=== PATIENT | male | born 1990 | race Two or more races ===

== ENCOUNTER 2021-01-28 16:44 | Emergency (ER) | payer OTHER ==
[~2021-01-28] VITALS: Ht 170.2 cm; Wt 61.2 kg
[2021-01-28 16:48] VITALS: BP 135/58
--- NOTE | 2021-01-28 16:55 | NUR ---
PT SENT TO [facility] TO AWAIT AVAILABLE BED.
[2021-01-28] MEDS ORDERED: KETOROLAC 15 MG/ML VIAL IM ONE (18:35)
[2021-01-28] MEDS ORDERED: methocarbamoL 500 MG TAB PO SCH (18:35)
--- NOTE | 2021-01-28 18:51 | NUR ---
30/M WITH C/O LEFT SHOULDER PAIN AND BACK PAIN. PATIENT STATES HE "SLEPT WRONG" AND WOKE UP IN CONSTANT 10/10 THROBBING PAIN. DENIES INJURY OR TRAUMA, ROM OF LEFT ARM AND SHOULDER IS LIMITED DUE TO PAIN. PULSES AND SENSATION EQUAL BILATERALLY, PATIENT ABLE TO MOVE ALL DIGITS APPROPRIATELY. DENIES TAKING ANYTHING FOR PAIN. DENIES FEVER, CHILLS, CP OR SOB.
--- NOTE | 2021-01-28 19:21 | NUR ---
Pt report given to [facility]. Transfer of care at this time.
--- NOTE | 2021-01-28 19:22 | NUR ---
RECEIVED REPORT FROM GERALDO GAR, TRANSFER OF CARE AT THIS TIME. PT A/O X4 GCS 15 WITH EVEN AND UNLABORED RESPIRATIONS. AWAITING DISCHARGE PAPERWORK.
--- NOTE | 2021-01-28 19:46 | NUR ---
Patient discharged with v/s stable. Written and verbal after care instructions ABOUT SHOULDER PAIN given and explained. Patient verbalized understanding. Ambulatory with steady gait. All questions addressed prior to discharge. Advised to follow up with PMD.
== END 2021-01-28 19:46 | disposition home or self-care (01) ==
LOC: MED 16:44
DX: M25.512 Pain in left shoulder (principal); M54.6 Pain in thoracic spine; F90.9 Attention-deficit hyperactivity disorder, unspecified type; F17.200 Nicotine dependence, unspecified, uncomplicated
CPT/HCPCS: 72072; 73030; 96372; 99284; J1885

== ENCOUNTER 2021-05-21 10:07 | Emergency (ER) | payer BC, OTHER ==
[~2021-05-21] VITALS: Ht 170.2 cm; Wt 53.1 kg
[2021-05-21 10:09] VITALS: BP 159/117
[2021-05-21] MEDS ORDERED: KETOROLAC 60 MG/2 ML VIAL IM ONE (10:15)
--- NOTE | 2021-05-21 10:18 | NUR ---
PT AMBULATED TO BED
--- NOTE | 2021-05-21 10:20 | NUR ---
30/M BIB MOTHER WITH C/O LEFT SHOULDER PAIN X30 MINS. DENIES INJURY OR TRAUMA AND STATES HE WOKE UP WITH SHARP 10/10 PAIN, STATES UNABLE TO LIFT LEFT ARM. REPORTS TAKING XANAX PRIOR TO ARRIVAL TO ED. MEDHX: ADHD ALLERGIES: DENIES
--- NOTE | 2021-05-21 10:58 | NUR ---
XRAY AT BEDSIDE
[2021-05-21] MEDS ORDERED: IBUP-2213 PO (11:23)
[2021-05-25] MEDS ORDERED: ACET-9525 PO (12:40)
== END 2021-05-21 11:41 | disposition home or self-care (01) ==
LOC: MED 10:07
DX: M25.512 Pain in left shoulder (principal); X58.XXXA Exposure to other specified factors, initial encounter; Y93.89 Activity, other specified; Y92.89 Other specified places as the place of occurrence of the external cause; Y99.8 Other external cause status
CPT/HCPCS: 73020; 96372; 99283; J1885; Q0092

== ENCOUNTER 2021-05-23 15:44 | Emergency (ER) | payer BC, OTHER ==
[~2021-05-23] VITALS: Ht 170.2 cm; Wt 54.9 kg
[~2021-05-23 15:44] MED LIST: IBUP-2213 PO
[2021-05-23 16:23] VITALS: BP 137/79
--- NOTE | 2021-05-23 16:28 | NUR ---
PT TO WAIT IN LOBBY
[2021-05-23] MEDS ORDERED: KETOROLAC 30 MG/ML VIAL IM ONE (16:40)
--- NOTE | 2021-05-23 18:00 | NUR ---
30 Y/O MALE C/O L SHOULDER PAIN. PT WAS SEEN HERE 05/21/21 FOR SHOULDER IMPINGEMENT SYNDROME AND WAS CALLED TO COME BACK FOR POSSIBLE FRACTURE. PT REPORTS NOT BEING ABLE TO SLEEP D/T PAIN. DENIES NUMBNESS/TINGLING. PT STATED HE HAS THIS PAIN BACK IN JANUARY, PAIN WENT AWAY AND NOW ITS BACK. PT DENIES INJURY/TRAUMA. PT A/O X4 WITH EVEN AND UNLABORED RESPIRATIONS PMH:DENIES NKDA
[2021-05-23] MEDS ORDERED: ACET-8386 PO (18:03)
[2021-05-23] MEDS ORDERED: IBUP-2213 PO (18:03)
[2021-05-23] MEDS ORDERED: KETOROLAC 30 MG/ML VIAL ONE (18:05)
--- NOTE | 2021-05-23 18:22 | NUR ---
PT PLACED IN LEFT SLING
--- NOTE | 2021-05-23 18:28 | NUR ---
Patient discharged with v/s stable. Written and verbal after care instructions ABOUT HUMERUS FRACTURE TREATED WITH IMMOBILIZATION given and explained. Patient alert, oriented and verbalized understanding of instructions. Ambulatory with steady gait. All questions addressed prior to discharge. ID band removed. Patient advised to follow up with PMD. Rx of NORCO, IBUPROFEN given. Patient educated on indication of medication including possible reaction and side effects. Opportunity to ask questions provided and answered.
[2021-05-25] MEDS ORDERED: ACET-9525 PO (12:40)
== END 2021-05-23 18:28 | disposition home or self-care (01) ==
LOC: MED 15:44
DX: S42.492A Other displaced fracture of lower end of left humerus, initial encounter for closed fracture (principal); S42.142A Displaced fracture of glenoid cavity of scapula, left shoulder, initial encounter for closed fracture; X58.XXXA Exposure to other specified factors, initial encounter; Y93.89 Activity, other specified; Y92.89 Other specified places as the place of occurrence of the external cause; Y99.8 Other external cause status
CPT/HCPCS: 73200; 96372; 99284; J1885

== ENCOUNTER 2021-05-24 16:39 | Emergency (ER) | payer BC, OTHER ==
[~2021-05-24 16:39] MED LIST changes: +ACET-8386 PO
--- NOTE | 2021-05-24 17:35 | NUR ---
ATTEMPTED TO TRIAGE PT, NO ANSWER.
--- NOTE | 2021-05-24 17:40 | NUR ---
2ND ATTEMPT TO TRIAGE PT, NO ANSWER.
--- NOTE | 2021-05-24 17:45 | NUR ---
3RD AND FINAL ATTEMPT TO TRIAGE PT, NO ANSWER. PATIENT LEFT WITHOUT BEING SEEN BY DR. LOWERY. NO FURTHER CARE PROVIDED FOR PATIENT.
[2021-05-25] MEDS ORDERED: ACET-9525 PO (12:40)
== END 2021-05-24 17:35 | disposition left against medical advice (07) ==
LOC: MED 16:39
DX: Z53.21 Procedure and treatment not carried out due to patient leaving prior to being seen by health care provider (principal)

== ENCOUNTER 2021-06-01 14:03 | Emergency (ER) | payer BC, OTHER ==
[~2021-06-01] VITALS: Ht 170.2 cm; Wt 55.8 kg
[~2021-06-01 14:03] MED LIST changes: -ACET-8386 PO; +ACET-9525 PO
[2021-06-01 14:47] VITALS: BP 142/95
[2021-06-01] MEDS ORDERED: ACET-8386 PO (15:06)
[2021-06-01 15:42] VITALS: BP 115/68
--- NOTE | 2021-06-01 15:42 | NUR ---
Patient discharged with v/s stable. Written and verbal after care instructions given and explained. Patient verbalized understanding. Ambulatory with steady gait. All questions addressed prior to discharge. Advised to follow up with PMD.
== END 2021-06-01 15:42 | disposition home or self-care (01) ==
LOC: MED 14:03
DX: M25.512 Pain in left shoulder (principal); F17.210 Nicotine dependence, cigarettes, uncomplicated; Z76.0 Encounter for issue of repeat prescription; Z79.899 Other long term (current) drug therapy
CPT/HCPCS: 99281

== ENCOUNTER 2021-08-17 03:34 | Emergency (ER) | payer BC, OTHER ==
[~2021-08-17] VITALS: Ht 172.7 cm; Wt 70.3 kg
[~2021-08-17 03:34] MED LIST changes: +ACET-8386 PO
[2021-08-17 03:35] VITALS: BP 134/85
--- NOTE | 2021-08-17 03:37 | NUR ---
KRYSTYNA VILLEGAS, VIA GURNEY TO BED 05.
--- NOTE | 2021-08-17 04:06 | NUR ---
pt requesting to be dc home. calling family for ride home. er aware
[2021-08-17 05:02] VITALS: BP 132/55
== END 2021-08-17 05:04 | disposition home or self-care (01) ==
LOC: MED 03:34
DX: M25.512 Pain in left shoulder (principal); Z79.899 Other long term (current) drug therapy
CPT/HCPCS: 73030; 99283; Q0092

== ENCOUNTER 2023-09-11 15:28 | Emergency (ER) | payer BC, OTHER ==
[~2023-09-11] VITALS: Ht 170.2 cm; Wt 65.8 kg
[~2023-09-11 15:28] MED LIST changes: -ACET-8386 PO; +ACET-8905 PO
[2023-09-11 15:39] VITALS: BP 119/82; PULSE 90; RESP 18; TEMP 98.2; O2SAT 98
[2023-09-11] MEDS ORDERED: ATA25 PO (16:44)
[2023-09-11] MEDS: LORazepam 1 MG TAB PO ONE (16:59)
[2023-09-11 17:00] VITALS: BP 134/70; PULSE 79; RESP 18; TEMP 98.3; O2SAT 99
== END 2023-09-11 17:00 | disposition home or self-care (01) ==
LOC: MED 15:28
DX: F41.9 Anxiety disorder, unspecified (principal); R00.2 Palpitations; F10.90 Alcohol use, unspecified, uncomplicated; Z79.899 Other long term (current) drug therapy; Y90.9 Presence of alcohol in blood, level not specified
CPT/HCPCS: 99283

== ENCOUNTER 2023-09-12 13:18 | Observation (INO) | payer OTHER ==
[~2023-09-12] VITALS: Ht 162.6 cm; Wt 68.0 kg
[~2023-09-12 13:18] MED LIST changes: +ATA25 PO
[2023-09-12 13:40] VITALS: BP 128/76; PULSE 100; RESP 16; TEMP 98.3; O2SAT 95
[2023-09-12] MEDS: LORazepam 2 MG/ML VIAL IVP ONE (14:09)
[2023-09-12 15:01] LABS: BASOPHILS % (AUTO) 0.2 % (0.0-2.0); EOSINOPHILS # (AUTO) 0.1 K/uL (0-0.4); EOSINOPHILS % (AUTO) 0.6 % (0.0-4.0); HEMATOCRIT 43.6 % (36-52); HEMOGLOBIN 15.2 g/dL (12.0-18.0); LYMPHOCYTES # (AUTO) 1.1 K/uL (2.0-11.5); LYMPHOCYTES % (AUTO) 8.1 % (20.5-51.1); MEAN CORPUSCULAR HEMOGLOBIN 31 pg (27-31); MEAN CORPUSCULAR HGB CONC 35 g/dL (33-37); MEAN CORPUSCULAR VOLUME 87.4 fL (80-94); MONOCYTES # (AUTO) 0.8 K/uL (0.8-1.0); MONOCYTES % (AUTO) 5.9 % (1.7-9.3); NEUTROPHILS # (AUTO) 11.1 K/uL (1.8-7.7); NEUTROPHILS % (AUTO) 85.2 % (42.2-75.2); PLATELET COUNT (AUTO) 417 K/uL (140-450); RED BLOOD CELL COUNT(AUTO) 4.99 MIL/uL (4.20-6.10); RED CELL DISTRIBUTION WIDTH 14.8 % (11.6-13.7)
[2023-09-12 15:14] LABS: ANION GAP 14.5 (8-16); CALCIUM 8.5 mg/dL (8.5-10.1); CARBON DIOXIDE 26.7 mmol/L (21-32); CREATININE 1.3 mg/dL (0.6-1.3); POTASSIUM 4.2 mmol/L (3.5-5.1)
[2023-09-12 15:18] LABS: CREATINE KINASE, TOTAL 454 U/L (39-308); MAGNESIUM 2.2 mg/dL (1.8-2.4)
[2023-09-12 15:20] LABS: ALCOHOL, BLOOD 10 mg/dL (<10); SALICYLATE < 2.8 mg/dL (2.8-20.0)
[2023-09-12] MEDS: diazePAM 5 MG TAB PO ONE (15:48)
[2023-09-12] MEDS: levETIRAcetam 1,000 MG in NACL 0.9% 100 ML IV ONE (16:06)
[2023-09-12] MEDS ORDERED: MORPHINE SULFATE 4 MG/ML SYR IVP PRN (16:25)
[2023-09-12] MEDS ORDERED: KCL 20 MEQ IN 100 mL PREMIX 200 ML IV PRN (16:25)
[2023-09-12] MEDS ORDERED: HYDROcodone/APAP 5/325 MG 1 TAB TAB PO PRN (16:25)
[2023-09-12] MEDS ORDERED: ACETAMINOPHEN 325 MG TAB PO PRN (16:25)
[2023-09-12] MEDS ORDERED: ONDANSETRON 4 MG/2 ML VIAL IVP PRN (16:25)
[2023-09-12] MEDS ORDERED: POTASSIUM CHLORIDE 10 MEQ TABER PO PRN (16:25)
[2023-09-12] MEDS ORDERED: DIAZEPAM PFS 10 MG/2 ML SYR IVP PRN (16:30)
[2023-09-12] MEDS: NACL 0.9% 1,000 ML IV ONE (16:52)
[2023-09-12 17:33] LABS: AMPHETAMINE, URINE NEGATIVE ng/ml (NEG <=1000); BARBITURATE, URINE NEGATIVE ng/ml (NEG <=200); BENZODIAZEPINE, URINE POSITIVE ng/mL (NEG <=200); CANNABINOID, URINE NEGATIVE ng/mL (NEG <=50); COCAINE, URINE NEGATIVE ng/mL (NEG <=300); OPIATE, URINE NEGATIVE ng/mL (NEG <=2000); PHENCYCLIDINE SCREEN,URINE NEGATIVE ng/mL (NEG <=25)
[2023-09-12] MEDS: chlordiazePOXIDE 25 MG CAP PO SCH (17:47)
[2023-09-12] MEDS: NACL 0.9% 1,000 ML IV SCH (17:50)
[2023-09-12 20:10] VITALS: BP 145/85; PULSE 83; RESP 17; RESP 18; TEMP 98.2; O2SAT 100; O2SAT 97
[2023-09-12] MEDS: levETIRAcetam 1,000 MG in NACL 0.9% 100 ML IV SCH (20:25)
[2023-09-12] MEDS: LORazepam 1 MG TAB PO PRN (23:00)
[2023-09-13] VITALS: BP 138/90; PULSE 83; RESP 17; TEMP 98.2; O2SAT 97
[2023-09-13 04:00] VITALS: BP 123/60; PULSE 68; PULSE 69; RESP 16; TEMP 97.4; O2SAT 99
[2023-09-13 05:29] LABS: BASOPHILS # (AUTO) 0.1 K/uL (0.00-0.22); BASOPHILS % (AUTO) 0.9 % (0.0-2.0); EOSINOPHILS # (AUTO) 0.4 K/uL (0-0.4); EOSINOPHILS % (AUTO) 4.2 % (0.0-4.0); HEMATOCRIT 42.3 % (36-52); HEMOGLOBIN 14.5 g/dL (12.0-18.0); LYMPHOCYTES # (AUTO) 1.9 K/uL (2.0-11.5); LYMPHOCYTES % (AUTO) 21.5 % (20.5-51.1); MEAN CORPUSCULAR HEMOGLOBIN 30 pg (27-31); MEAN CORPUSCULAR HGB CONC 34 g/dL (33-37); MEAN CORPUSCULAR VOLUME 88.5 fL (80-94); MONOCYTES # (AUTO) 0.9 K/uL (0.8-1.0); MONOCYTES % (AUTO) 10.2 % (1.7-9.3); NEUTROPHILS # (AUTO) 5.7 K/uL (1.8-7.7); NEUTROPHILS % (AUTO) 63.2 % (42.2-75.2); PLATELET COUNT (AUTO) 373 K/uL (140-450); RED BLOOD CELL COUNT(AUTO) 4.78 MIL/uL (4.20-6.10)
[2023-09-13 06:58] LABS: ALBUMIN 3.4 g/dL (3.4-5.0); ANION GAP 14.9 (8-16); CALCIUM 8.3 mg/dL (8.5-10.1); CARBON DIOXIDE 26.2 mmol/L (21-32); CREATININE 1.2 mg/dL (0.6-1.3); MAGNESIUM 2.4 mg/dL (1.8-2.4); POTASSIUM 4.1 mmol/L (3.5-5.1); TOTAL BILIRUBIN 0.4 mg/dL (0.0-1.0); TOTAL PROTEIN, SERUM 6.8 g/dL (6.4-8.2)
[2023-09-13] MEDS ORDERED: DIAZ-950 PO (09:51)
== END 2023-09-13 07:45 | disposition left against medical advice (07) ==
LOC: MED 13:18 → MTU 16:23
PROVIDERS: ADMIT Student in an Organized Health Care Education/Training Program; ATTEND Student in an Organized Health Care Education/Training Program
DX: R56.9 Unspecified convulsions (principal); F10.239 Alcohol dependence with withdrawal, unspecified; E86.1 Hypovolemia; I10 Essential (primary) hypertension; M62.82 Rhabdomyolysis; D72.829 Elevated white blood cell count, unspecified; Z53.29 Procedure and treatment not carried out because of patient's decision for other reasons; Z79.899 Other long term (current) drug therapy
CPT/HCPCS: 36415; 70450; 71045; 80048; 80053; 80305; 82550; 82553; 83735; 84484; 85025; 87081; 93005; 96361; 96365; 96366; 96375; 99285; G0378; G0480; G0482; J1953; J2060

== ENCOUNTER 2023-09-13 08:02 | Emergency (ER) | payer OTHER ==
[~2023-09-13] VITALS: Ht 170.2 cm; Wt 65.8 kg
[2023-09-13 08:35] VITALS: BP 133/95; PULSE 72; RESP 18; TEMP 98; O2SAT 98
[2023-09-13] MEDS: diazePAM 5 MG TAB PO ONE (09:32)
[2023-09-13] MEDS ORDERED: DIAZ-950 PO (09:51)
== END 2023-09-13 09:54 | disposition home or self-care (01) ==
LOC: MED 08:02
DX: F10.90 Alcohol use, unspecified, uncomplicated (principal); Z79.899 Other long term (current) drug therapy; Y90.9 Presence of alcohol in blood, level not specified
CPT/HCPCS: 99283

== ENCOUNTER 2023-09-24 13:26 | Emergency (ER) | payer OTHER ==
[~2023-09-24] VITALS: Ht 170.2 cm; Wt 67.6 kg
[~2023-09-24 13:26] MED LIST changes: -ACET-8905 PO; -ACET-9525 PO; -ATA25 PO; +DIAZ-950 PO; -IBUP-2213 PO
[2023-09-24 13:28] VITALS: BP 125/80; PULSE 89; RESP 18; TEMP 98; O2SAT 97
[2023-09-24] MEDS ORDERED: CHLO-836 PO (15:24)
[2023-09-24 15:28] VITALS: BP 122/82; PULSE 78; RESP 16; TEMP 98; O2SAT 99
[2023-09-24] MEDS ORDERED: chlordiazePOXIDE 25 MG CAP PO SCH (17:00)
== END 2023-09-24 15:28 | disposition home or self-care (01) ==
LOC: MED 13:26
DX: F10.90 Alcohol use, unspecified, uncomplicated (principal); Y90.9 Presence of alcohol in blood, level not specified
CPT/HCPCS: 99281

== ENCOUNTER 2023-09-26 08:37 | Emergency (ER) | payer OTHER ==
[~2023-09-26] VITALS: Ht 170.2 cm; Wt 45.4 kg
[~2023-09-26 08:37] MED LIST changes: +CHLO-836 PO
[2023-09-26 08:50] VITALS: BP 125/80; PULSE 91; RESP 18; TEMP 98.3; O2SAT 100
[2023-09-26] MEDS ORDERED: [UNRECOGNIZED DRUG - CODE] PO (11:18)
== END 2023-09-26 09:10 | disposition left against medical advice (07) ==
LOC: MED 08:37
DX: R56.9 Unspecified convulsions (principal); Z53.21 Procedure and treatment not carried out due to patient leaving prior to being seen by health care provider
CPT/HCPCS: 99281

== ENCOUNTER 2023-09-26 10:34 | Emergency (ER) | payer OTHER ==
[~2023-09-26] VITALS: Ht 170.2 cm; Wt 65.8 kg
[2023-09-26 10:46] VITALS: BP 113/76; PULSE 92; RESP 18; TEMP 98.3; TEMP 98.6; O2SAT 96
[2023-09-26 10:55] VITALS: O2SAT 96
[2023-09-26] MEDS ORDERED: [UNRECOGNIZED DRUG - CODE] PO (11:18)
== END 2023-09-26 11:00 | disposition home or self-care (01) ==
LOC: MED 10:34
DX: F10.10 Alcohol abuse, uncomplicated (principal); F14.90 Cocaine use, unspecified, uncomplicated; Z79.899 Other long term (current) drug therapy; Y90.0 Blood alcohol level of less than 20 mg/100 ml
CPT/HCPCS: 99283

== ENCOUNTER 2023-10-24 05:40 | Emergency (ER) | payer OTHER ==
[~2023-10-24] VITALS: Ht 170.2 cm; Wt 56.7 kg
[~2023-10-24 05:40] MED LIST changes: +CHLO-757 PO; -CHLO-836 PO; +[UNRECOGNIZED DRUG - CODE] PO
[2023-10-24 05:48] VITALS: BP 182/107; PULSE 108; RESP 20; TEMP 97.4; O2SAT 99
[2023-10-24 06:17] VITALS: O2SAT 98
[2023-10-24 06:26] LABS: BASOPHILS # (AUTO) 0.2 K/uL (0.00-0.22); EOSINOPHILS # (AUTO) 1.2 K/uL (0-0.4); EOSINOPHILS % (AUTO) 12.8 % (0.0-4.0); HEMATOCRIT 43.6 % (36-52); HEMOGLOBIN 15.3 g/dL (12.0-18.0); LYMPHOCYTES # (AUTO) 2.5 K/uL (2.0-11.5); LYMPHOCYTES % (AUTO) 27.9 % (20.5-51.1); MEAN CORPUSCULAR HEMOGLOBIN 30 pg (27-31); MEAN CORPUSCULAR HGB CONC 35 g/dL (33-37); MEAN CORPUSCULAR VOLUME 85.6 fL (80-94); MONOCYTES # (AUTO) 0.6 K/uL (0.8-1.0); MONOCYTES % (AUTO) 6.1 % (1.7-9.3); NEUTROPHILS # (AUTO) 4.6 K/uL (1.8-7.7); NEUTROPHILS % (AUTO) 51.2 % (42.2-75.2); PLATELET COUNT (AUTO) 480 K/uL (140-450); RED CELL DISTRIBUTION WIDTH 14.8 % (11.6-13.7)
[2023-10-24] MEDS: NACL 0.9% 1,000 ML IV ONE (06:35)
[2023-10-24 06:48] LABS: CALCIUM 9.4 mg/dL (8.5-10.1); CARBON DIOXIDE 25.9 mmol/L (21-32); CREATININE 1.2 mg/dL (0.6-1.3); POTASSIUM 4.9 mmol/L (3.5-5.1)
[2023-10-24 06:53] LABS: ALANINE AMINOTRANSFERASE 41 U/L (12-78); ALBUMIN 4.4 g/dL (3.4-5.0); ASPARTATE AMINOTRANSFERASE 54 U/L (15-37)
[2023-10-24 07:21] LABS: SALICYLATE < 2.8 mg/dL (2.8-20.0)
[2023-10-24 07:22] LABS: ACETAMINOPHEN < 0.5 ug/ml (10-30); ALCOHOL, BLOOD < 3 mg/dL (<10)
[2023-10-24] MEDS: LORazepam 2 MG/ML VIAL IVP ONE (07:22)
[2023-10-24 07:31] LABS: ALKALINE PHOSPHATASE 74 U/L (50-136); TOTAL BILIRUBIN 0.7 mg/dL (0.0-1.0); TOTAL PROTEIN, SERUM 8.2 g/dL (6.4-8.2)
[2023-10-24 08:02] VITALS: O2SAT 98
[2023-10-24] MEDS: diazePAM 5 MG TAB PO ONE ×3 (08:37→20:19)
[2023-10-24] MEDS ORDERED: diazePAM 5 MG TAB ONE (15:17)
[2023-10-24 15:39] LABS: AMPHETAMINE, URINE NEGATIVE ng/ml (NEG <=1000); BARBITURATE, URINE NEGATIVE ng/ml (NEG <=200); BENZODIAZEPINE, URINE POSITIVE ng/mL (NEG <=200)
[2023-10-24 15:40] LABS: CANNABINOID, URINE NEGATIVE ng/mL (NEG <=50); COCAINE, URINE POSITIVE ng/mL (NEG <=300); OPIATE, URINE NEGATIVE ng/mL (NEG <=2000); PHENCYCLIDINE SCREEN,URINE NEGATIVE ng/mL (NEG <=25)
[2023-10-24 19:45] VITALS: O2SAT 98
[2023-10-24] MEDS: LORazepam 1 MG TAB PO ONE (21:28)
[2023-10-24 22:17] VITALS: O2SAT 98
[2023-10-24] MEDS: OLANZapine 5 MG ODT SL ONE (22:36)
[2023-10-25 02:38] VITALS: O2SAT 99
[2023-10-25 03:54] VITALS: O2SAT 99
[2023-10-25 06:42] VITALS: O2SAT 99
[2023-10-25 08:57] VITALS: TEMP 97.8
[2023-10-25 12:38] VITALS: BP 99/64; PULSE 69; RESP 12; O2SAT 98
[2023-11-06] MEDS ORDERED: AMPH30CE PO (06:53)
[2023-11-06] MEDS ORDERED: QUET300T1 PO (06:53)
== END 2023-10-25 12:38 ==
LOC: MED 05:40
DX: F14.10 Cocaine abuse, uncomplicated (principal); F10.10 Alcohol abuse, uncomplicated; R45.851 Suicidal ideations; Y90.9 Presence of alcohol in blood, level not specified; Z20.822 Contact with and (suspected) exposure to COVID-19; Z79.899 Other long term (current) drug therapy
CPT/HCPCS: 36415; 80048; 80076; 80305; 85025; 87426; 93005; 96361; 96374; 99285; G0480; G0482; J2060; J7030

== ENCOUNTER 2023-11-12 22:35 | Emergency (ER) | payer OTHER ==
[~2023-11-12] VITALS: Ht 167.6 cm; Wt 60.8 kg
[~2023-11-12 22:35] MED LIST changes: +AMPH30CE PO; -CHLO-757 PO; -DIAZ-950 PO; +QUET300T1 PO; -[UNRECOGNIZED DRUG - CODE] PO
[2023-11-12 23:04] VITALS: BP 157/100; PULSE 73; RESP 14; TEMP 97.1; O2SAT 99
[2023-11-12 23:08] VITALS: BP 157/100; PULSE 73; RESP 14; TEMP 97.1
[2023-11-12 23:09] VITALS: O2SAT 99
[2023-11-12] MEDS: LORazepam 2 MG/ML VIAL IM ONE (23:22)
== END 2023-11-12 23:50 | disposition home or self-care (01) ==
LOC: MED 22:35
DX: F41.9 Anxiety disorder, unspecified (principal); I10 Essential (primary) hypertension; F10.10 Alcohol abuse, uncomplicated; F14.10 Cocaine abuse, uncomplicated; Z86.69 Personal history of other diseases of the nervous system and sense organs; Z79.2 Long term (current) use of antibiotics; Z79.899 Other long term (current) drug therapy; Y90.9 Presence of alcohol in blood, level not specified
CPT/HCPCS: 96372; 99283; J2060

== ENCOUNTER 2023-12-09 23:40 | Emergency (ER) | payer OTHER ==
[~2023-12-09] VITALS: Ht 180.3 cm; Wt 68.0 kg
[2023-12-09 23:57] VITALS: BP 137/98; PULSE 84; RESP 17; TEMP 98; O2SAT 98
[2023-12-10] MEDS ORDERED: LORazepam 1 MG TAB ONE ×2 (00:31→00:34)
[2023-12-10] MEDS: LORazepam 1 MG TAB PO ONE (00:58)
[2023-12-10 01:14] LABS: BASOPHILS # (AUTO) 0.1 K/uL (0.00-0.22); BASOPHILS % (AUTO) 1.2 % (0.0-2.0); EOSINOPHILS # (AUTO) 0.4 K/uL (0-0.4); EOSINOPHILS % (AUTO) 7.2 % (0.0-4.0); HEMATOCRIT 43.5 % (36-52); HEMOGLOBIN 15.1 g/dL (12.0-18.0); LYMPHOCYTES # (AUTO) 2.3 K/uL (2.0-11.5); LYMPHOCYTES % (AUTO) 39.1 % (20.5-51.1); MEAN CORPUSCULAR HEMOGLOBIN 31 pg (27-31); MEAN CORPUSCULAR HGB CONC 35 g/dL (33-37); MEAN CORPUSCULAR VOLUME 89.7 fL (80-94); MONOCYTES # (AUTO) 0.5 K/uL (0.8-1.0); MONOCYTES % (AUTO) 9.3 % (1.7-9.3); NEUTROPHILS # (AUTO) 2.5 K/uL (1.8-7.7); NEUTROPHILS % (AUTO) 43.2 % (42.2-75.2); PLATELET COUNT (AUTO) 343 K/uL (140-450); RED BLOOD CELL COUNT(AUTO) 4.84 MIL/uL (4.20-6.10); RED CELL DISTRIBUTION WIDTH 16.5 % (11.6-13.7); WHITE BLOOD COUNT (AUTO) 5.8 K/uL (4.8-10.8)
[2023-12-10 01:28] LABS: ANION GAP 14.1 (8-16); CALCIUM 9.4 mg/dL (8.5-10.1); CREATININE 0.9 mg/dL (0.6-1.3); POTASSIUM 4.1 mmol/L (3.5-5.1)
[2023-12-10 01:39] LABS: CREATINE KINASE, TOTAL 229 U/L (39-308); SALICYLATE < 2.8 mg/dL (2.8-20.0)
[2023-12-10 01:40] LABS: ACETAMINOPHEN < 0.5 ug/ml (10-30); ALCOHOL, BLOOD 290 mg/dL (<10)
[2023-12-10 02:31] LABS: AMPHETAMINE, URINE NEGATIVE ng/ml (NEG <=1000); BARBITURATE, URINE NEGATIVE ng/ml (NEG <=200); BENZODIAZEPINE, URINE POSITIVE ng/mL (NEG <=200); CANNABINOID, URINE NEGATIVE ng/mL (NEG <=50); COCAINE, URINE POSITIVE ng/mL (NEG <=300); OPIATE, URINE NEGATIVE ng/mL (NEG <=2000); PHENCYCLIDINE SCREEN,URINE NEGATIVE ng/mL (NEG <=25)
[2023-12-10] MEDS ORDERED: QUET300T1 PO (04:34)
[2023-12-10] MEDS: QUEtiapine FUMARATE 100 MG TAB PO ONE (04:51)
[2023-12-10 07:30] VITALS: O2SAT 98
[2023-12-10 07:57] VITALS: BP 137/98; PULSE 84; RESP 17; TEMP 98; O2SAT 98
== END 2023-12-10 07:54 | disposition home or self-care (01) ==
LOC: MED 23:40
DX: F10.129 Alcohol abuse with intoxication, unspecified (principal); F41.9 Anxiety disorder, unspecified; F19.10 Other psychoactive substance abuse, uncomplicated; Y90.8 Blood alcohol level of 240 mg/100 ml or more; I10 Essential (primary) hypertension; Z86.69 Personal history of other diseases of the nervous system and sense organs; Z79.899 Other long term (current) drug therapy
CPT/HCPCS: 36415; 80048; 80305; 82550; 85025; 99283; G0480; G0482

== ENCOUNTER 2023-12-20 01:55 | Emergency (ER) | payer OTHER ==
[~2023-12-20] VITALS: Ht 170.2 cm; Wt 63.5 kg
[2023-12-20 02:14] VITALS: BP 133/93; PULSE 94; RESP 20; TEMP 97.4; O2SAT 98
[2023-12-20] MEDS: FAMOTIDINE 20 MG TAB PO ONE (03:02)
[2023-12-20] MEDS: ALUMINUM HYD/MAG/SIMETHICONE 30 ML UDC PO ONE (03:02)
[2023-12-20 04:44] VITALS: BP 133/93; PULSE 94; RESP 20; TEMP 97.4; O2SAT 98
== END 2023-12-20 04:44 | disposition home or self-care (01) ==
LOC: MED 01:55
DX: F10.129 Alcohol abuse with intoxication, unspecified (principal); K29.20 Alcoholic gastritis without bleeding; I10 Essential (primary) hypertension; Z86.69 Personal history of other diseases of the nervous system and sense organs; Z79.899 Other long term (current) drug therapy
CPT/HCPCS: 99283

== ENCOUNTER 2023-12-26 13:10 | Emergency (ER) | payer OTHER ==
[~2023-12-26] VITALS: Ht 170.2 cm; Wt 65.4 kg
[2023-12-26 13:20] VITALS: BP 135/95; PULSE 122; RESP 20; TEMP 98.7; O2SAT 96
[2023-12-26 14:00] LABS: BASOPHILS % (AUTO) 0.6 % (0.0-2.0); EOSINOPHILS # (AUTO) 0.1 K/uL (0-0.4); EOSINOPHILS % (AUTO) 2.5 % (0.0-4.0); HEMATOCRIT 38.3 % (36-52); HEMOGLOBIN 12.9 g/dL (12.0-18.0); LYMPHOCYTES # (AUTO) 1.4 K/uL (2.0-11.5); LYMPHOCYTES % (AUTO) 25.9 % (20.5-51.1); MEAN CORPUSCULAR HEMOGLOBIN 32 pg (27-31); MEAN CORPUSCULAR HGB CONC 34 g/dL (33-37); MEAN CORPUSCULAR VOLUME 93.5 fL (80-94); MONOCYTES # (AUTO) 0.6 K/uL (0.8-1.0); MONOCYTES % (AUTO) 10.7 % (1.7-9.3); NEUTROPHILS # (AUTO) 3.2 K/uL (1.8-7.7); NEUTROPHILS % (AUTO) 60.3 % (42.2-75.2); PLATELET COUNT (AUTO) 326 K/uL (140-450); RED BLOOD CELL COUNT(AUTO) 4.09 MIL/uL (4.20-6.10); RED CELL DISTRIBUTION WIDTH 16.6 % (11.6-13.7); WHITE BLOOD COUNT (AUTO) 5.3 K/uL (4.8-10.8)
[2023-12-26] MEDS: KETOROLAC 30 MG/ML VIAL IVP ONE (14:06)
[2023-12-26] MEDS: NACL 0.9% 1,000 ML IV ONE (14:07)
[2023-12-26] MEDS: DIAZEPAM PFS 10 MG/2 ML SYR IVP ONE (14:11)
[2023-12-26 14:17] LABS: CALCIUM 9.4 mg/dL (8.5-10.1); CREATININE 1.1 mg/dL (0.6-1.3)
[2023-12-26 14:23] LABS: ALANINE AMINOTRANSFERASE 56 U/L (12-78); ALBUMIN 3.7 g/dL (3.4-5.0); ALCOHOL, BLOOD < 3 mg/dL (<10); ALKALINE PHOSPHATASE 100 U/L (50-136); ASPARTATE AMINOTRANSFERASE 36 U/L (15-37); BILIRUBIN,DIRECT 0.1 mg/dL (0.0-0.3); LIPASE 83 U/L (16-77); TOTAL BILIRUBIN 0.2 mg/dL (0.0-1.0); TOTAL PROTEIN, SERUM 7.5 g/dL (6.4-8.2)
[2023-12-26 15:18] VITALS: BP 107/69; PULSE 89; RESP 16; TEMP 97.3; O2SAT 95
== END 2023-12-26 15:18 | disposition home or self-care (01) ==
LOC: MED 13:10
DX: F10.20 Alcohol dependence, uncomplicated (principal); I10 Essential (primary) hypertension; Z86.69 Personal history of other diseases of the nervous system and sense organs; Z79.899 Other long term (current) drug therapy; Y90.0 Blood alcohol level of less than 20 mg/100 ml
CPT/HCPCS: 36415; 80048; 80076; 83690; 85025; 96361; 96374; 96375; 99284; G0482; J1885; J3360; J7030

== ENCOUNTER 2024-02-24 21:20 | Emergency (ER) | payer OTHER ==
[~2024-02-24] VITALS: Ht 170.2 cm; Wt 65.8 kg
[2024-02-24 21:28] VITALS: BP 128/80; PULSE 67; RESP 20; TEMP 98.8; O2SAT 98
== END 2024-02-25 01:53 | disposition left against medical advice (07) ==
LOC: MED 21:20
DX: R11.2 Nausea with vomiting, unspecified (principal); Z53.21 Procedure and treatment not carried out due to patient leaving prior to being seen by health care provider